=== PATIENT | male | born 1995 | race Caucasian/White ===

== ENCOUNTER 2016-11-27 10:30 | Emergency (ER) | payer BC ==
[2016-11-27 10:52] VITALS: BP 139/78
--- NOTE | 2016-11-27 11:16 | UC ---
UC General HPI - HPI Summary HPI Summary: patient has an infected big toe that he was placed on Bactrim, [place] out of town, forgot to bring his medication. the infection is responding well to the med. - History of Current Complaint Chief Complaint: UCMedRefill Stated Complaint: MED REFILL-LEFT BIG TOE Time Seen by Provider: 11/27/16 11:11 Hx Obtained From: Patient Onset/Duration: Sudden Onset, Lasting Days Timing: Constant Onset Severity: Moderate Current Severity: Moderate - Allergy/Home Medications Allergies/Adverse Reactions: Allergies Allergy/AdvReac Type Severity Reaction Status Date / Time No Known Allergies Allergy Verified 11/27/16 10:53 PMH/Surg Hx/FS Hx/Imm Hx Previously Healthy: Yes - Surgical History Surgical History: Yes Surgery Procedure, Year, and Place: Trigger thumb release - Family History Known Family History: Positive: Hypertension - Social History Alcohol Use: Occasionally Substance Use Type: None Smoking Status (MU): Never Smoked Tobacco Review of Systems Constitutional: Negative Skin: Other - redness Eyes: Negative ENT: Negative Respiratory: Negative Cardiovascular: Negative Gastrointestinal: Negative Genitourinary: Negative Motor: Negative Neurovascular: Negative Musculoskeletal: Negative Neurological: Negative Psychological: Negative All Other Systems Reviewed And Are Negative: Yes Physical Exam Triage Information Reviewed: Yes Appearance: Well-Appearing, Well-Nourished, Pain Distress Vital Signs: Initial Vital Signs Temp 97.7 F 11/27/16 10:48 Pulse 84 11/27/16 10:48 Resp 14 11/27/16 10:48 BP 139/78 11/27/16 10:48 Pulse Ox 100 11/27/16 10:48 Vital Signs Reviewed: Yes Eye Exam: Normal Eyes: Positive: Conjunctiva Clear ENT Exam: Normal Dental Exam: Normal Neck exam: Normal Respiratory Exam: Normal Cardiovascular Exam: Normal Abdominal Exam: Normal Musculoskeletal Exam: Normal Musculoskeletal: Positive: Strength Intact, ROM Intact, Edema @ - mild in right great toe Neurological Exam: Normal Neurological: Positive: Alert, Muscle Tone Normal Psychological Exam: Normal Skin: Positive: Other - erythema in right great toe Course/Dx - Course Course Of Treatment: hx obtained, exam performed, meds reviewed, refill given. - Differential Dx - Multi-Symptom Provider Diagnoses: cellulitis of right great toe Discharge - Discharge Plan Condition: Stable Disposition: HOME Prescriptions: Sulfamethox/Trimethoprim DS* [Bactrim DS 800/160 TAB*] 1 tab PO BID #12 tab Patient Education Materials: Cellulitis (ED) Additional Instructions: 1. continue the medication as prescribed. 2. Follow up with Your Doctor if not continuing to improve.
== END 2016-11-27 11:26 | disposition home or self-care (01) ==
LOC: UCCORT 10:30
DX: L03.031 Cellulitis of right toe (principal); B96.89 Other specified bacterial agents as the cause of diseases classified elsewhere
CPT/HCPCS: 99202; G0463

== ENCOUNTER 2018-02-06 19:12 | Emergency (ER) | payer BC ==
[2018-02-06 19:38] VITALS: BP 152/79
--- NOTE | 2018-02-06 20:02 | UC ---
Lower Extremity/Ankle HPI - HPI Summary HPI Summary: 22 year old male presents with complaints of infected ingrown toenail to left great toe for past several days. Associated with redness, mild edema, and scant amount of purulent drainage. Denies fever or chills. He has had ingrown toenail in same toe in past and treated twice with nail excision by reading interventionist in [place] but has declined to have nail matricectomy due to long recovery period and he has not wanted to be out of work for an extended period of time. He is currently working locally and will be here for several weeks. - History of Current Complaint Chief Complaint: UCSkin Stated Complaint: TOENAIL CONCERN - (L FOOT) Time Seen by Provider: 02/06/18 19:52 Hx Obtained From: Patient Onset/Duration: Gradual Onset Severity Initially: Mild Severity Currently: Mild Pain Intensity: 0 Aggravating Factor(s): Standing, Ambulation Alleviating Factor(s): Nothing Able to Bear Weight: Yes - Allergies/Home Medications Allergies/Adverse Reactions: Allergies Allergy/AdvReac Type Severity Reaction Status Date / Time No Known Allergies Allergy Verified 02/06/18 19:38 PMH/Surg Hx/FS Hx/Imm Hx Previously Healthy: Yes - Surgical History Surgical History: Yes Surgery Procedure, Year, and Place: Trigger thumb release - Family History Known Family History: Positive: Hypertension - Social History Occupation: Employed Full-time Lives: Alone Alcohol Use: Occasionally Alcohol Amount: once a week Substance Use Type: None Smoking Status (MU): Never Smoked Tobacco Review of Systems Constitutional: Negative Skin: Other - see HPT Motor: Negative Neurovascular: Negative Musculoskeletal: Negative All Other Systems Reviewed And Are Negative: Yes Physical Exam Triage Information Reviewed: Yes Appearance: Well-Appearing, No Pain Distress, Well-Nourished Vital Signs: Initial Vital Signs Temp 98.3 F 02/06/18 19:36 Pulse 83 02/06/18 19:36 Resp 16 02/06/18 19:36 BP 152/79 02/06/18 19:36 Pulse Ox 100 02/06/18 19:36 Vital Signs Reviewed: Yes Respiratory: Positive: No respiratory distress Cardiovascular: Positive: Pulses Normal Musculoskeletal Exam: Normal Neurological Exam: Other - sensation intact Skin: Positive: Other - Mild erythema and swelling to lateral nailfold of left great toe. Scant amount of draiange noted. No induration or fluctuance. Previous nail excision noted. Lower Extremity Course/Dx - Course Course Of Treatment: 22 year old male patient with previous history of ingrown toenail presents with infected ingrown toenail of left great toe. Will treat with cephalexin 500 mg TID x 7 days, warm soaks, and referral to local reading interventionist for definitive care. Patient verbalizes understanding and agrees with POC. - Differential Dx/Diagnosis Provider Diagnoses: Infected ingrown toenail left great toe Discharge - Sign-Out/Discharge Documenting (check all that apply): Patient Departure - Discharge Plan Condition: Stable Disposition: HOME Prescriptions: Cephalexin CAP* [Keflex 500 CAP*] 500 mg PO TID #21 cap Patient Education Materials: Ingrown Nail (ED) Referrals: No Primary Care Phys,NOPCP [Primary Care Provider] - Caden Casper DPM [Doctor of Podiatric Medicine] - (Call for appointment) Additional Instructions: Start cephalexin 500 mg 1 cap three time a day for 7 days. Be sure to complete the entire course even if you are feeling better. Soak the toe in warm water and Epsom salt solution 3 times daily. Take an over the counter pain medication such as acetaminophen (Tylenol), ibuprofen (Advil, Motrin), or naproxen (Aleve) according to directions as needed for pain. Call Dr. Casper's office and make an appointment for follow up and treatment. - Billing Disposition and Condition Condition: STABLE Disposition: Home
== END 2018-02-06 20:06 | disposition home or self-care (01) ==
LOC: UCCORT 19:12
DX: L60.0 Ingrowing nail (principal); L03.032 Cellulitis of left toe
CPT/HCPCS: 99212; G0463